=== PATIENT | female | born 1985 | race Asian ===

== ENCOUNTER → 2021-05-22 14:42 | Outpatient (CLI) | payer OTHER, SELFPAY ==
[2021-05-22 15:35] LABS: COVID19 -Nasal RAPID Negative (Negative)
== END ==
PROVIDERS: Visit Provider Obstetrics & Gynecology
DX: Z20.822 Contact with and (suspected) exposure to COVID-19 (principal); Z01.812 Encounter for preprocedural laboratory examination
CPT/HCPCS: 87635

== ENCOUNTER 2021-05-23 13:17 | Day surgery (SDC) | payer OTHER, SELFPAY ==
[2021-04-29 08:11] VITALS: BMI 27.4
[2021-05-23] VITALS (8 sets, daily range): BP systolic 86–119; BP diastolic 51–77; PULSE 51–64; RESP 10–21; TEMP 36.4–36.5; O2SAT 62–100; BMI 27.4
--- NOTE | 2021-05-23 | PATH_ITS ---
[facility] Accession Number: [id number] . 01 Material submitted: . endometrium - UTERINE POLYP . 02 Diagnosis: Uterine Polyp: Portions of proliferative endometrium; negative for glandular hyperplasia, cytologic atypia, or malignancy. Many endometrial tissue fragments have attached myometrium; negative for atypia or malignancy. Findings could be consistent with a submucosal leiomyoma, in the appropriate clinical and imaging setting. Portion of lower uterine segment with prominent vessels, suggestive of polyp; negative for glandular hyperplasia, cytologic atypia, or malignancy. MRV 05/27/2021 1342 Local . 02 Electronically signed: . Lizz Loaiza MD, Pathologist NPI- [id number] . 01 Gross description: . UTERINE POLYP: Received in formalin are multiple fragment(s) of mason, soft tissue measuring 2.7 x 2.5 x 0.7 cm in aggregate submitted entirely in 1 cassette(s) /ELENA 05/24/2021 0420 Local . 02 Pathologist provided ICD-10: N93.0, N93.9, N84.0 . 02 CPT . 985889 Performed at: 01 [facility] [address], [place], [place] [id number] MD Mike Banegas MD Phone: [phone] Performed at: 02 [facility] [address] [place], [place] [id number] MD Minerva Candelario MD Phone: [phone]
--- NOTE | 2021-05-23 13:04 | P.HPOB_ITS ---
History of Present Illness History of Present Illness Narrative: Maggie? is a 35-year-old , LMP 03/17/2021 who presented in referral from [facility] with significantly thickened endometrium on ultrasound which also shows probable endometrial polyp as well as a possible submucous myoma.? The patient was having abnormal uterine bleeding and underwent evaluation at the base but attempts for endometrial biopsy were unsuccessful due to cervical stenosis.? A malpositioned ParaGard IUD which had been present for 7 years was able to be removed. Due to the abnormal ultrasound findings combined with the cervical stenosis, it was recommended that she undergo hysteroscopy with plans for resection of the polyp and possible submucous myoma at that time. ? After counseling re: all options, due to the combined indications above, recommendation made for performance of operative hysteroscopy with plans for resection of endometrial polyp and/or submucous myomata.? The patient does at the same time wish to have a Mirena IUD inserted for contraception.? She is currently scheduled for hysteroscopy with biopsies, possible polypectomy, possible resection of submucous myoma, and insertion of Mirena IUD in the [facility] on the afternoon of 05/23/2021.? She presents today for her scheduled surgery. PENDING SALE TO [facility] Medical History Abnormal uterine bleeding due to endometrial polyp Endometrial thickening on ultrasound Submucous uterine fibroid Social History household members: spouse Smoking Status: Never smoker Meds Home Medications and Allergies Home Medications Medication Instructions Recorded Confirmed Type No Known Home Medications 04/03/21 05/22/21 History Allergies Allergy/AdvReac Type Severity Reaction Status Date / Time No Known Drug Allergies Allergy Unverified 05/22/21 14:32 Review of Systems Review of Systems Narrative: Problem-specific ROS positives included in HPI Exam Const General: cooperative, well developed and No acute distress Nutritional Appearance: average body habitus Orientation: alert and oriented x3 HENMT Head: normocephalic and atraumatic Ears: hearing grossly normal bilaterally Nose: external nose normal Face and sinus: face symmetric Mouth: oral mucosae normal Teeth and gingiva: dentition normal Throat: posterior oropharynx normal Eyes General: appearance normal, both eyes and all related structures Conjunctivae: conjunctivae normal Sclera: sclerae normal EOM: EOM intact bilaterally Neck Neck: normal visual inspection, full ROM, trachea midline and No lymphadenopathy Thyroid: thyroid normal Resp Effort & Inspection: normal respiratory effort and able to speak in complete sentences Auscultation: clear to auscultation bilaterally Cardio Rate: regular rate Rhythm: regular rhythm Heart Sounds: S1 normal, S2 normal and no murmurs GI Inspection: normal to inspection Palpation: soft, no hepatosplenomegaly and tender External Female Exam: normal external appearance and normal appearance of the urethra Speculum Exam - Vagina: normal appearance of the vagina and normal vaginal discharge Speculum Exam - Cervix: normal appearance of the cervix Bimanual Exam- Vagina & Uterus: normal bimanual exam Bimanual Exam- Adnexa, other: normal adnexae and no masses Skin General: no rashes or lesions noted Neuro General: patient alert, patient awake and patient oriented x3 Extrem General: No calf tenderness Psych Appearance: grossly normal Mental Status: mental status grossly normal Speech and Movement: speech and movement normal Mood: congruent mood Affect: normal affect Attitude: cooperative Thought Process: normal Thought Content: normal Judgment: judgment good Assessment & Plan Assessment and plan (1) Cervical stenosis (uterine cervix): Status: Acute (2) Endometrial thickening on ultrasound: Status: Acute (3) Abnormal uterine bleeding due to endometrial polyp: Status: Acute (4) Submucous uterine fibroid: Status: Acute Plan: Patient counseled regarding alternatives, risks, benefits, and potential complications associated with hysteroscopy with possible biopsies, possible resection of submucous myoma, and insertion of Mirena IUD.? With full understanding of the above, a written consent was executed, signed, and witnessed 05/22/2021. Time Spent With Patient Critical Care time: I spent a total of [] minutes of critical care time on this patient's care today; this time is exclusive of procedural time.
--- NOTE | 2021-05-23 13:12 | PM.PREOP ---
Pre-operative Note COVID-19 COVID-19 status: Negative Result date/Date tested (Pos, Neg/Pending): 05/22/21 Interval Note History & Physical reviewed/Exam performed by Physician: Yes Changes to H&P: No
[2021-05-23] MEDS: LACTATED RINGERS 1,000 ML 100 ML IV ×2 (14:16→15:54)
--- NOTE | 2021-05-23 16:24 | SUR.OPER ---
Lithotomy on padded OR bed, head on pillow, arms secured on padded arm boards at <90 degrees abduction. Legs secured in padded yellow fins stirrups.
--- NOTE | 2021-05-23 16:34 | SUR.OPER ---
MARISA RODRIGUEZ S/N [id number] EXP. 2023 LOT [id number]
--- NOTE | 2021-05-23 16:55 | P.OP_ITS ---
Operative Date/Time/Diagnoses Date of procedure: 05/23/21 Time of procedure: 16:00 Pre-op diagnosis: Endometrial thickening on ultrasound Abnormal uterine bleeding due to endometrial polyp Probable submucous myoma Post-op diagnosis: same Procedure & Clinicians Procedure: Procedures Operation Date: 05/23/21 15:00 Actual Procedure Side Surgeon p Opertaive Hysteroscopy/resection of endometrial polyp/submucous myomata Not Applicable Germain Joyce MD s Insertion of Mirena IUD Not Applicable Germain Joyce MD Indications: Maggie is a 35-year-old , LMP 03/17/2021 who presented in referral from [facility] with significantly thickened endometrium on ultrasound which also shows probable endometrial polyp as well as a possible submucous myoma.? The patient was having abnormal uterine bleeding and underwent evaluation at the base but attempts for endometrial biopsy were unsuccessful due to cervical stenosis.? A malpositioned ParaGard IUD which had been present for 7 years was able to be removed. Due to the abnormal ultrasound findings combined with the cervical stenosis, it was recommended that she undergo hysteroscopy with plans for resection of the polyp and possible submucous myoma at that time. ? After counseling re: all options, due to the combined indications above, recommendation made for performance of operative hysteroscopy with plans for resection of endometrial polyp and/or submucous myomata.? The patient does at the same time wish to have a Mirena IUD inserted for contraception.? She is currently scheduled for hysteroscopy with biopsies, possible polypectomy, possible resection of submucous myoma, and insertion of Mirena IUD in the [facility] OR on the afternoon of 05/23/2021.? She presents today for her scheduled surgery. Surgeon: Germain Joyce Anesthesia Type: General Operative Notes Findings: The endocervical canal is extremely narrow and deviated to the patient's right. Visually the endocervical canal is unremarkable but upon entry into the endometrial cavity there is a broad-based polyp or perhaps a submucous myoma arising from the posterior surface of the endometrial cavity. The area of abnormality was resected in its entirety during the course of the procedure. Following removal of this abnormality the remainder of the endometrial cavity was entirely unremarkable. Closure Type: not applicable Specimen(s): endometrial polyp and other Estimated blood loss (mL): 50 Blood products transfused: none Procedure in detail: With the patient under satisfactory general endotracheal anesthesia in the modified dorsal lithotomy position, the perineum vagina and abdomen were prepped and draped for hysteroscopy. A pre-surgical safety time- out was then taken in accordance with [facility] OR protocols. A bivalve speculum was placed in the vagina and the cervix visualized. The cervix was grasped anteriorly with a single-tooth tenaculum and a uterine sound was used to carefully identify the track of the endocervical canal which deviated sharply to the right. At that point sequential dilation of the endocervical canal could be accomplished and the hysteroscope was placed into the uterine cavity. Once the abnormality was identified, the distension medium was switched to sorbitol and a resectoscope with a loop electrode introduced. The abnormality on the posterior wall was entirely resected using the resectoscope and hemostasis at the completion of that part of the process was excellent. All the specimens were removed from the endometrial cavity and were submitted as in aggregate. A Mirena IUD was then inserted into the endometrial cavity and deplo yed as per the usual technique. The strings were trimmed to a length of 3 cm beyond the ectocervical os. The Mirena IUD is lot number [id number]. The tenaculum was then removed from the cervical lip and significant bleeding occurred with their removal. Two stitches were placed the 1 in either puncture site using 2 0 chromic [id number]. At that point hemostasis was easily achieved and the bivalve speculum removed. Complications: none Post-operative Condition: stable Disposition: PACU Plan for aftercare: Routine postoperative care.
--- NOTE | 2021-05-23 18:14 | SUR.PHASEI ---
1659 note received report from [facility] and Anesthesiologist.
== END 2021-05-23 17:59 | disposition home or self-care (01) ==
PROVIDERS: Referring Provider Obstetrics & Gynecology; Visit Provider Obstetrics & Gynecology
PROC: 0UDB8ZZ Extraction of Endometrium, Via Natural or Artificial Opening Endoscopic (ICD-10-PCS; CPT 58558; principal; 2021-05-23 15:00)
PROC: (CPT 58558; 2021-05-23 15:00)
DX: N84.0 Polyp of corpus uteri (principal); N88.2 Stricture and stenosis of cervix uteri; D25.0 Submucous leiomyoma of uterus; Z30.430 Encounter for insertion of intrauterine contraceptive device
CPT/HCPCS: 58558; 58300; J1100; J1885; J2405; J3010